=== PATIENT | female | born 1990 | race Caucasian/White ===

== ENCOUNTER 2018-12-08 09:51 | Emergency (ER) | payer SELFPAY ==
--- NOTE | 2018-12-08 10:03 | ED Physician Documentation ---
Sore Throat/Dental Pain - HISTORIAN Historian: patient - HPI Stated Complaint: sore throat Chief Complaint: Sore Throat Additional Information: Patient presents to ED with a 2 day history of worsening sore throat. She reports an upper respiratory infection about 2 weeks ago which was near resolution. She has an exposure to strep throat also. Associated symptoms include nasal congestion, post nasal drip and cough. Denies fever. Onset: days ago (2) Associated Symptoms: sore throat, runny nose, congestion, cough. denies: fever - ROS CONST: recent illness CVS/RESP: denies: chest pain, shortness of breath GI/: denies: nausea, vomiting MS/SKIN/LYMPH: denies: muscle aches, rash NEURO/PSYCH: denies: headache - PAST HX Past History: none Other History: none Home Medications: Ambulatory Orders Medication Instructions Recorded Amoxicillin/Potassium Clav 1 each PO BID #14 tablet 12/08/18 [Augmentin 875-125 Tablet] Desogestrel-Ethinyl Estradiol 1 tab PO DAILY 12/08/18 [Enskyce 28 Tablet] Loratadine [Claritin] 10 mg PO DAILY 12/08/18 - SOCIAL HX Smoking History: non-smoker Alcohol Use: none Drug Use: none - FAMILY HX Family History: No - REVIEWED ASSESSMENTS Nursing Assessment Reviewed: Yes Vitals Reviewed: Yes Progress - Results/Orders Results/Orders: Rapid strep - Negative. Sore throat Physical Exam - EXAM General Appearance: no acute distress, alert Head/Neck: no lymphadenopathy, pain over sinuses, maxillary swelling (R), maxillary swelling (L) Eyes: PERRL Mouth/Throat: pharyngeal erythema Respiratory: no resp. distress, breath sounds nml CVS: reg. rate & rhythm, heart sounds nml Abdomen: soft, normal bowel sounds, non-tender Extremities: non-tender Skin: warm/dry, normal color Neuro/Psych: oriented x3, mood/affect nml Discharge Clincal Impression: Acute sinusitis Qualifiers: Sinusitis location: maxillary Recurrence: non-recurrent Qualified Code(s): J01.00 - Acute maxillary sinusitis, unspecified Prescriptions: Amoxicillin/Potassium Clav [Augmentin 875-125 Tablet] 1 each PO BID #14 tablet Additional Instructions: 1. Take antibiotic until gone 2. Add daily antihistamine such as Clartin, Xyzal, Carmen, or Zyrtec 3. Cool mist vaporizer with sleep 4. Sinus irrigation could be beneficial 5. Follow up with PCP within 1 week 6. Return to ER for new or worsening symptoms Condition: Stable Disposition: 01 HOME, SELF-CARE Decision to Admit: NO Date of Decison to Admit: 12/08/18 Decision Time: 10:10
[2018-12-08 10:21] VITALS: BP 142/87
== END 2018-12-08 10:19 | disposition home or self-care (01) ==
LOC: ED 09:51
DX: J01.00 Acute maxillary sinusitis, unspecified (principal)
CPT/HCPCS: 87070; 87880; 99281; 99284